=== PATIENT | female | born 1985 | race Two or more races ===

== ENCOUNTER 2025-04-10 09:28 | Emergency (ER) | payer BC, MEDICAID ==
[~2025-04-10] VITALS: Ht 167.6 cm; Wt 68.5 kg
[2025-04-10 09:34] VITALS: O2SAT 100
[2025-04-10 09:55] LABS: BASOPHILS % 0.6 % (0.0-2.0); EOSINOPHILS % 1.4 % (0.0-5.0); HEMATOCRIT. 34.4 % (36.0-48.0); HEMOGLOBIN. 11.6 g/dL (12.0-16.0); LYMPHOCYTES % 28.9 % (20.0-50.0); MEAN PLATELET VOLUME 9.1 fl (7.4-10.4); MONOCYTES % 9.1 % (2.0-8.0); NEUTROPHILS % 60.0 % (40.0-76.0); PLATELET 154 x1000/uL (130-400); RED BLOOD CELL COUNT 3.71 mill/uL (4.2-5.4); RED CELL DISTRIBUTION WIDTH 12.8 % (11.6-14.6)
[2025-04-10 10:12] LABS: CREATININE 0.7 mg/dL (0.6-1.0); UREA NITROGEN BLOOD 17 mg/dL (9-23)
[2025-04-10 10:25] LABS: HCG SCREEN NEGATIVE
[2025-04-10] MEDS ORDERED: ACYC200C31 MT (10:38)
[2025-04-10] MEDS ORDERED: P20 MT (10:38)
[2025-04-10] MEDS ORDERED: GLYC30DR4 RIGHTEYE (10:39)
[2025-04-10 11:22] VITALS: BP 116/63; PULSE 64; RESP 16; TEMP 36.7; O2SAT 99
== END 2025-04-10 11:15 | disposition home or self-care (01) ==
LOC: ER 09:28
DX: G51.0 Bell's palsy (principal); Z98.890 Other specified postprocedural states
CPT/HCPCS: 36415; 80048; 82962; 84703; 85025; 99284